=== PATIENT | female | born 1950 | race Hispanic/Latino ===

== ENCOUNTER → 2017-06-04 | Outpatient (CLI) | payer OTHER, MEDICARE ==
[~2017-06-04] MED LIST: ACET-48 PO; AEC81 PO; AMLO10TA2 PO; BENA40TA3 PO; LORA10TA7 PO; MELO-106 PO; OXYB5TAB10 PO; ROSU40TA28 PO
== END | disposition home or self-care (01) ==
LOC: RAH 11:41
PROVIDERS: ATTEND Family Medicine
DX: Z12.31 Encounter for screening mammogram for malignant neoplasm of breast (principal)
CPT/HCPCS: 77067

== ENCOUNTER → 2018-07-17 | Outpatient (CLI) | payer OTHER, MEDICARE ==
[~2018-07-17] MED LIST changes: -AMLO10TA2 PO; +AMLO10TA7 PO; -BENA40TA3 PO; +BENA40TA9 PO; +ROSU40TA20 PO; -ROSU40TA28 PO
== END | disposition home or self-care (01) ==
LOC: RAH 09:50
PROVIDERS: ATTEND Family Medicine
DX: Z12.31 Encounter for screening mammogram for malignant neoplasm of breast (principal)
CPT/HCPCS: 77067

== ENCOUNTER → 2018-11-15 | Outpatient (CLI) | payer OTHER, MEDICARE ==
[~2018-11-15] VITALS: Ht 154.9 cm; Wt 91.6 kg
[~2018-11-15] MED LIST changes: +REGADENOSON 0.4 MG/5 ML PF SYG IVP SCH; -ROSU40TA20 PO; +ROSU40TA21 PO
== END | disposition home or self-care (01) ==
LOC: SHCH 07:41
PROVIDERS: ATTEND Internal Medicine Cardiovascular Disease
DX: I20.9 Angina pectoris, unspecified (principal)
CPT/HCPCS: 78452; 93017; 96374; A9500 ×2; J2785

== ENCOUNTER → 2020-03-04 | Outpatient (CLI) | payer OTHER, MEDICARE ==
[~2020-03-04] MED LIST changes: -ACET-48 PO; +ACET-49 PO; +AMLO-258 PO; -AMLO10TA7 PO; -OXYB5TAB10 PO; +OXYB5TAB15 PO
== END | disposition home or self-care (01) ==
LOC: SHCH 08:18
PROVIDERS: ATTEND Internal Medicine Cardiovascular Disease
DX: I25.10 Atherosclerotic heart disease of native coronary artery without angina pectoris (principal)
CPT/HCPCS: 78452; 93017; 96374; A9500 ×2; J2785

== ENCOUNTER → 2020-03-29 | Outpatient (CLI) | payer OTHER, MEDICARE ==
[~2020-03-29] MED LIST changes: -REGADENOSON 0.4 MG/5 ML PF SYG IVP SCH
== END | disposition home or self-care (01) ==
LOC: RAH 10:48
PROVIDERS: ATTEND Family Medicine
DX: Z12.31 Encounter for screening mammogram for malignant neoplasm of breast (principal)
CPT/HCPCS: 77067